=== PATIENT | female | born 1960 | race Caucasian/White ===

== ENCOUNTER 2017-10-18 20:44 | Emergency (ER) | payer BC ==
[~2017-10-18] VITALS: Ht 157.5 cm; Wt 92.5 kg
[~2017-10-18 20:44] MED LIST: ASPIRIN81 M2 PO; AZELASTINE137 MCG/0.; BENADRYL PO; BUTRANS1 EAC1 TOP; CEFTIN500 MG PO; CELEBREX100 MG PO; CYMBALTA30 MG; DICYCLOMINE HCL20 MG PO; DOXYCYCLINE HY100 MG PO; GABAPENTIN300 MG PO; GARLIC PO; HYDROCODON-ACE1 EA11 PO; KRISTALOSE20 GM PO; LACTULOSE20 GM/30 M PO; LINZESS PO; LISINOPRIL-HCT1 EAC3 PO; LITHIUM CARBON150 MG; LITHIUM CARBON150 MG PO; MACROBID 100 M100 MG PO; MOVANTIK PO; MULTIVITAMIN1 EAC2 PO; NEXIUM40 MG PO; NORCO 10MG-325MG1 EA PO; OXYBUTYNIN CHLOR5 MG PO; PYRIDIUM100 MG PO; SUCRALFATE1 GM PO; TAMSULOSIN HCL0.4 MG PO; TYLENOL EXTRA500 MG PO; Z ALPRAZOLAM PO; Z.0.FOLIC ACID1 MG PO; Z.0.NEXIUM40 MG PO; Z.0.NORVASC5 MG PO; Z.0.RESTASIS1 EACH OP; Z.0.TRICOR48 MG PO; Z.0.ZETIA10 MG PO; Z.6.FISH OIL 1,0001 PO; tylenol PO
[2017-10-18] MEDS ORDERED: HYDROCODONE/APAP 10MG-325MG TAB PO ONE (21:30)
[2017-10-18] MEDS ORDERED: KETOROLAC TROMETHAMINE 60 MG/2 ML VIAL IM ONE (21:30)
== END 2017-10-18 22:30 | disposition home or self-care (01) ==
LOC: ER 20:44
DX: Z46.6 Encounter for fitting and adjustment of urinary device (principal)
CPT/HCPCS: 99282

== ENCOUNTER 2018-05-02 20:16 | Inpatient (IN) | payer BC ==
[~2018-05-02] VITALS: Ht 157.5 cm; Wt 91.4 kg
[2018-05-02] MEDS ORDERED: DIATRIZOATE MEGL/DIATRIZOA SOD 30 ML BTL PO ONE (20:56)
[2018-05-02 20:57] LABS: BASOPHILS % 0.3 % (0.0-1.0); EOSINOPHILS # (AUTO) 0.2 (0.0-0.4); EOSINOPHILS % 2.7 % (0.0-6.0); LYMPHOCYTES # (AUTO) 2.6 (1.0-3.2); LYMPHOCYTES % 32.7 % (18.0-39.1); MEAN CORPUSCULAR HEMOGLOBIN 21.1 pg (28-32); MEAN CORPUSCULAR HGB CONC 28.3 g/dL (31-35); MEAN CORPUSCULAR VOLUME 74.6 fL (81-99); MONOCYTES # (AUTO) 0.7 (0.2-0.8); MONOCYTES % 8.9 % (4.4-11.3); NEUTROPHILS # (AUTO) 4.4 (2.1-6.9); PLATELET COUNT 500 x10e3/uL (140-360); RED BLOOD COUNT 2.84 x10e6/uL (3.6-5.1); RED CELL DISTRIBUTION WIDTH 17.4 % (11.7-14.4)
[2018-05-02 21:03] LABS: HEMATOCRIT 21.2 % (34.2-44.1)
[2018-05-02 21:18] LABS: ALANINE AMINOTRANSFERASE 11 IU/L (0-55); ALBUMIN 3.9 g/dL (3.5-5.0); ALBUMIN/GLOBULIN RATIO 1.3 (0.8-2.0); ALKALINE PHOSPHATASE 50 IU/L (40-150); AMYLASE 45 U/L (25-125); ANION GAP 13.6 mmol/L (8-16); BLOOD UREA NITROGEN 12 mg/dL (7-26); BUN/CREATININE RATIO 13 (6-25); CALCIUM 8.7 mg/dL (8.4-10.2); CARBON DIOXIDE 23 mmol/L (22-29); CHLORIDE 101 mmol/L (98-107); CREATININE, SERUM 0.93 mg/dL (0.57-1.11); EST GLOMERULAR FILTRATION RATE > 60 ML/MIN (60-); GLUCOSE 128 mg/dL (74-118); LIPASE 30 U/L (8-78); POTASSIUM 3.6 mmol/L (3.5-5.1); SODIUM 134 mmol/L (136-145)
[2018-05-02] MEDS ORDERED: SODIUM CHLORIDE 0.9% 50ML 50 ML ONE (22:30)
[2018-05-02] MEDS ORDERED: IOPAMIDOL 370 MG/ML 200 ML INFUS..BTL INJ ONE (22:31)
--- NOTE | 2018-05-02 22:45 | Diagnostic Imaging Report ---
EXAM: CT ABDOMEN AND PELVIS with IV CONTRAST DATE: 05/02/2018 8:25 PM Time stamp on Exam: 2216 hours INDICATION: Left lower quadrant pain COMPARISON: None TECHNIQUE: The abdomen and pelvis were scanned using a multidetector helical scanner. Coronal and sagittal reformations were obtained. Routine protocol performed. IV Contrast: 100 cc Isovue-370 Oral Contrast: Gastrografin CTDIvol has been reviewed. It is below the limits set by the Radiation Protocol Committee (RPC). FINDINGS: LOWER THORAX: No consolidations LIVER: Cyst measuring 5 mm in the left lobe of the liver. BILIARY: The gallbladder is unremarkable. No ductal dilation. SPLEEN: No masses PANCREAS: No masses ADRENALS: No nodules KIDNEYS: Symmetric perfusion. No enhancing masses. No hydronephrosis. GI TRACT: No distention, wall thickening or evidence of obstruction. Normal appendix. VESSELS: Moderate atherosclerotic changes of the abdominal aorta without aneurysm. PERITONEUM/RETROPERITONEUM: No free air or fluid LYMPH NODES: No lymphadenopathy REPRODUCTIVE ORGANS: Unremarkable BLADDER: Decompressed by suprapubic catheter. SOFT TISSUES: Unremarkable BONES: Surgical changes of the left hip. IMPRESSION: No acute findings in the CT of the abdomen or pelvis. No findings to explain patient's left lower quadrant pain. Signed by: Dr. Kimberli Mello M.D. on 05/02/2018 10:42 PM
[2018-05-02 23:01] LABS: CLARITY,URINE HAZY (CLEAR); COLOR,URINE YELLOW (YELLOW)
[2018-05-02 23:02] LABS: BILIRUBIN,URINE NEGATIVE (NEGATIVE); KETONES,URINE NEGATIVE (NEGATIVE); LEUKOCYTE ESTERASE ,URINE 2+ (NEGATIVE); NITRITE,URINE NEGATIVE (NEGATIVE); PROTEIN,URINE DIPSTICK NEGATIVE (NEGATIVE); URINE UROBILINOGEN 0.2 mg/dL (0.2 - 1)
[2018-05-02 23:15] LABS: BACTERIA,URINE FEW /HPF; EPITHELIAL CELLS,URINE RARE /LPF; WBC,URINE (MAN) >50 /HPF (0-5)
[2018-05-02] MEDS ORDERED: ONDANSETRON HCL INJ 2 MG/ML VIAL IV PRN (23:30)
[2018-05-02] MEDS ORDERED: SODIUM CHLORIDE 0.9% 250ML 250 ML IV ONE (23:30)
[2018-05-02] MEDS ORDERED: SODIUM CHLORIDE FLUSH 10 ML SYR INJ PRN (23:30)
[2018-05-02] MEDS ORDERED: FUROSEMIDE INJ 10 MG/ML 2 ML VIAL IV PRN (23:30)
[2018-05-02] MEDS: NICOTINE 21 MG/EA PATCH TOP SCH (23:53)
[2018-05-03 00:30] VITALS: BP 161/67
[2018-05-03] MEDS: PIPER-TAZ 3.375 GM 50 ML IV SCH ×3 (00:34→14:00)
[2018-05-03 04:00] VITALS: BP 150/54
[2018-05-03] MEDS ORDERED: SODIUM CHLORIDE 0.9% 250ML 250 ML ONE ×2 (05:28→09:52)
[2018-05-03 07:30] VITALS: BP 108/62
[2018-05-03 07:40] VITALS: BP 108/62
[2018-05-03] MEDS: NICOTINE 21 MG/EA PATCH TOP SCH (09:00)
[2018-05-03 11:51] VITALS: BP 126/69
[2018-05-03 15:30] LABS: BASOPHILS % 0.7 % (0.0-1.0); EOSINOPHILS # (AUTO) 0.2 (0.0-0.4); EOSINOPHILS % 3.1 % (0.0-6.0); HEMATOCRIT 30.1 % (34.2-44.1); HEMOGLOBIN 9.4 g/dL (12.0-16.0); LYMPHOCYTES # (AUTO) 1.3 (1.0-3.2); LYMPHOCYTES % 22.5 % (18.0-39.1); MEAN CORPUSCULAR HEMOGLOBIN 23.9 pg (28-32); MEAN CORPUSCULAR HGB CONC 31.2 g/dL (31-35); MEAN CORPUSCULAR VOLUME 76.6 fL (81-99); MONOCYTES # (AUTO) 0.5 (0.2-0.8); MONOCYTES % 8.2 % (4.4-11.3); NEUTROPHILS # (AUTO) 3.8 (2.1-6.9); PLATELET COUNT 512 x10e3/uL (140-360); RED BLOOD COUNT 3.93 x10e6/uL (3.6-5.1)
[2018-05-03 15:45] VITALS: BP 142/70
[2018-05-03] MEDS ORDERED: AUGMENTIN 875-1 EACH PO (15:46)
[2018-05-03 15:49] LABS: ALANINE AMINOTRANSFERASE 12 IU/L (0-55); ALBUMIN/GLOBULIN RATIO 1.2 (0.8-2.0); ALKALINE PHOSPHATASE 52 IU/L (40-150); ANION GAP 13.2 mmol/L (8-16); BLOOD UREA NITROGEN 10 mg/dL (7-26); BUN/CREATININE RATIO 13 (6-25); CALCIUM 9.3 mg/dL (8.4-10.2); CARBON DIOXIDE 23 mmol/L (22-29); CHLORIDE 107 mmol/L (98-107); CREATININE, SERUM 0.79 mg/dL (0.57-1.11); EST GLOMERULAR FILTRATION RATE > 60 ML/MIN (60-); GLUCOSE 121 mg/dL (74-118); POTASSIUM 4.2 mmol/L (3.5-5.1); SODIUM 139 mmol/L (136-145)
== END 2018-05-03 16:19 | disposition home or self-care (01) | DRG 699 ==
LOC: ER 20:16 → ERHOLD 23:27 → MED/SURG3 23:40
PROVIDERS: ADMIT Family Medicine; ATTEND Family Medicine
DX: T83.511A Infection and inflammatory reaction due to indwelling urethral catheter, initial encounter (principal); E87.1 Hypo-osmolality and hyponatremia; K92.2 Gastrointestinal hemorrhage, unspecified; J44.9 Chronic obstructive pulmonary disease, unspecified; I10 Essential (primary) hypertension; E78.5 Hyperlipidemia, unspecified; G89.29 Other chronic pain; Z98.1 Arthrodesis status; N30.20 Other chronic cystitis without hematuria; F17.210 Nicotine dependence, cigarettes, uncomplicated
CPT/HCPCS: 36415; 36430; 74177; 80053; 81001; 82150; 83690; 85025; 86850; 86900; 86920; 87086; 87186; 99284; J2543; J7050; P9016; Q9967

== ENCOUNTER → 2018-06-09 | Day surgery (SDC) | payer BC ==
[~2018-06-09] MED LIST changes: +AMPICILLIN PO; +AUGMENTIN 875-1 EACH PO; +CEFDINIR300 MG PO; +CEFTRIAXONE SOD 1 GM VIAL ONE; +DEXAMETHASONE SOD PHOS INJ 4 MG/ML VIAL ONE; +FENTANYL CITRATE/PF 100MCG/2 ML INJ ONE; +LACTULOSE PO; +LIDOCAINE HCL 2% LOCAL INJ 5 ML SDV VIAL INJ ONE; +MIDAZOLAM HCL 2 MG/2 ML VIAL ONE; +ONDANSETRON HCL INJ 2 MG/ML VIAL ONE; +PROPOFOL IV EMULSION 10 MG/ML 20 ML VIAL ONE; +SEVOFLURANE INHAL SOLN 250 ML PEN BTL ONE
--- NOTE | 2018-06-09 16:33 | Operative Report ---
DATE OF PROCEDURE: June 09, 2018 PREOPERATIVE DIAGNOSIS: Chronic retention and bladder pain. POSTOPERATIVE DIAGNOSIS: Chronic retention and bladder pain. PROCEDURES PERFORMED 1. Cystoscopy. 2. Bladder biopsy. 3. Removal or replacement of suprapubic tube. ANESTHESIA: General anesthesia. ESTIMATED BLOOD LOSS: Minimal. INDICATIONS AND FINDINGS: Ms. Callahan is a 58-year-old woman with a history of a neurogenic bladder of unclear etiology, who is managed with chronic suprapubic tube. Despite this, she has chronic significant pain in her bladder region and in her vagina. She now presents for potential diagnosis and management of this problem. OPERATIVE PROCEDURE IN DETAIL: The patient was brought in the operating room, placed in supine position. After initiation of general anesthesia, was placed in the dorsal lithotomy position and prepped and draped in the usual sterile fashion. Cystourethroscopy was performed using a 21-Khmer cystoscope. The anterior and posterior region were noted to be normal. The bladder was entered without difficulty. The bladder neck appeared completely opened. Upon entrance into the bladder, it was purely smooth-walled and pale in mucosa throughout. 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 The bladder capacity appeared normal. In the dome of the bladder, the balloon from the suprapubic tube was clearly visible. There was some irritation of the bladder mucosa near the tip of the SP tube. The remainder of the cystoscopy was unremarkable. The ureteral orifices were in normal anatomical position and produced clear efflux. Using cold-cup alligator forceps, biopsies were taken from the area of cystitis cystica seen on the posterior lateral wall. These were sent to pathology for microscopic analysis. The site was then fulgurated using a Bugbee electrode. A 14-Khmer coude catheter was placed through the urethra into the bladder. Once this was draining, the previous SP tube was removed and replaced with a 20-Khmer Coleman catheter. Both balloons were filled with approximately 5 mL of sterile water. The patient was returned to supine position and anesthesia was reversed. She was transferred to a bed and taken to postanesthesia care unit in good condition. Of note, the SP tube was plugged and the Coleman catheter was left draining to gravity. Job#: [id number] TA
== END | disposition home or self-care (01) ==
LOC: OR 11:21
PROVIDERS: ATTEND Urology
DX: N30.80 Other cystitis without hematuria (principal); N31.9 Neuromuscular dysfunction of bladder, unspecified; Z43.5 Encounter for attention to cystostomy; Z46.6 Encounter for fitting and adjustment of urinary device; E03.9 Hypothyroidism, unspecified; J44.9 Chronic obstructive pulmonary disease, unspecified; D64.9 Anemia, unspecified; K21.9 Gastro-esophageal reflux disease without esophagitis; F31.9 Bipolar disorder, unspecified; F41.9 Anxiety disorder, unspecified; F17.210 Nicotine dependence, cigarettes, uncomplicated; Z88.6 Allergy status to analgesic agent; Z88.1 Allergy status to other antibiotic agents; Z98.1 Arthrodesis status
CPT/HCPCS: 51705; 52214; 88305; 93005; J0696; J1100; J2001; J2250; J2405

== ENCOUNTER 2018-08-24 11:42 | Observation (INO) | payer BC ==
[~2018-08-24] VITALS: Ht 157.5 cm; Wt 86.8 kg
[2018-08-24 12:28] VITALS: BP 111/56
[2018-08-24 12:45] VITALS: BP 111/56
[2018-08-24] MEDS ORDERED: SODIUM CHLORIDE 0.9% 250ML 250 ML IV ONE (12:45)
[2018-08-24 13:57] LABS: BASOPHILS % 0.2 % (0.0-1.0); EOSINOPHILS # (AUTO) 0.2 (0.0-0.4); EOSINOPHILS % 3.4 % (0.0-6.0); LYMPHOCYTES # (AUTO) 1.3 (1.0-3.2); LYMPHOCYTES % 22.9 % (18.0-39.1); MEAN CORPUSCULAR HEMOGLOBIN 21.1 pg (28-32); MEAN CORPUSCULAR HGB CONC 27.1 g/dL (31-35); MEAN CORPUSCULAR VOLUME 77.8 fL (81-99); MONOCYTES # (AUTO) 0.5 (0.2-0.8); MONOCYTES % 8.3 % (4.4-11.3); NEUTROPHILS # (AUTO) 3.8 (2.1-6.9); NEUTROPHILS % 64.9 % (38.7-80.0); PLATELET COUNT 394 x10e3/uL (140-360); RED BLOOD COUNT 2.61 x10e6/uL (3.6-5.1); RED CELL DISTRIBUTION WIDTH 17.9 % (11.7-14.4)
[2018-08-24 14:16] LABS: HEMATOCRIT 20.3 % (34.2-44.1); HEMOGLOBIN 5.5 g/dL (12.0-16.0)
[2018-08-24 15:58] VITALS: BP 118/58
[2018-08-24] MEDS ORDERED: SODIUM CHLORIDE 0.9% 250ML 250 ML ONE ×2 (16:11→22:53)
[2018-08-24 19:30] VITALS: BP 128/60
[2018-08-24 20:19] VITALS: BP 128/60
[2018-08-24] MEDS: FUROSEMIDE INJ 10 MG/ML 2 ML VIAL IV PRN (20:59)
[2018-08-25 00:27] VITALS: BP 95/47
[2018-08-25 05:14] VITALS: BP 120/67
[2018-08-25] MEDS: FUROSEMIDE INJ 10 MG/ML 2 ML VIAL IV PRN (07:02)
[2018-08-25 07:19] LABS: HEMATOCRIT 25.5 % (34.2-44.1); HEMOGLOBIN 7.6 g/dL (12.0-16.0)
[2018-08-25 08:28] VITALS: BP 118/62
[2018-08-25 09:09] VITALS: BP 118/62
--- NOTE | 2018-10-11 00:38 | Discharge Summary ---
The patient came with symptomatic anemia. The patient has a history of blood loss anemia and has been given chronic blood transfusions as needed. The patient completed her blood transfusion. Post transfusion H and H was tested, was within normal limits. The patient was discharged home in a stable condition. FINAL DIAGNOSES 1. Blood loss anemia, status post transfusion. 2. History of . 3. History of chronic urinary retention. 4. History of bipolar disease. 5. History of anemia. 6. History of chronic urinary tract infections. For further information, look in the chart. For medicines on discharge, look in the medical reconciliation sheet. ALEXIA ARANGO MD Job#: [id number] GE
== END 2018-08-25 09:05 | disposition home or self-care (01) ==
LOC: MED/SURG 11:42
PROVIDERS: ADMIT Family Medicine; ATTEND Family Medicine
DX: D50.0 Iron deficiency anemia secondary to blood loss (chronic) (principal); K55.21 Angiodysplasia of colon with hemorrhage; Z88.1 Allergy status to other antibiotic agents; Z88.5 Allergy status to narcotic agent; Z88.2 Allergy status to sulfonamides; Z88.8 Allergy status to other drugs, medicaments and biological substances
CPT/HCPCS: 36415 ×2; 36430; 85014; 85018; 85025; 86850; 86900; 86920; G0378 ×2; J1940 ×2; J7050; P9016

== ENCOUNTER → 2018-08-24 | Emergency (ER) | payer BC ==
[~2018-08-24] MED LIST changes: -CEFTRIAXONE SOD 1 GM VIAL ONE; -DEXAMETHASONE SOD PHOS INJ 4 MG/ML VIAL ONE; -FENTANYL CITRATE/PF 100MCG/2 ML INJ ONE; -LIDOCAINE HCL 2% LOCAL INJ 5 ML SDV VIAL INJ ONE; -MIDAZOLAM HCL 2 MG/2 ML VIAL ONE; -ONDANSETRON HCL INJ 2 MG/ML VIAL ONE; -PROPOFOL IV EMULSION 10 MG/ML 20 ML VIAL ONE; -SEVOFLURANE INHAL SOLN 250 ML PEN BTL ONE
== END | disposition left against medical advice (07) ==
LOC: ER 11:15
DX: D64.9 Anemia, unspecified (principal)

== ENCOUNTER 2018-10-12 09:55 | Observation (INO) | payer BC ==
[~2018-10-12] VITALS: Ht 157.5 cm; Wt 88.5 kg
--- NOTE | 2018-10-12 18:05 | NUR ---
PT RECEIVED FROM DR ARANGO'S OFFICE VIA W/C ACCOMPANIED BY SPOUSE. A & O X3, ORIENTED TO ROOM CALL LIGHT WITHIN REACH. VITALS WNL. IV STARTED ON RT ANTECUBITAL AREA 20G 0N 1 ATTEMPT. NO S/S OF RESP DISTRESS NOTED.
[2018-10-12 19:26] LABS: BASOPHILS % 0.3 % (0.0-1.0); EOSINOPHILS # (AUTO) 0.1 (0.0-0.4); EOSINOPHILS % 1.6 % (0.0-6.0); LYMPHOCYTES % 25.5 % (18.0-39.1); MEAN CORPUSCULAR HEMOGLOBIN 22.5 pg (28-32); MEAN CORPUSCULAR HGB CONC 28.4 g/dL (31-35); MEAN CORPUSCULAR VOLUME 79.5 fL (81-99); MONOCYTES # (AUTO) 0.7 (0.2-0.8); MONOCYTES % 8.7 % (4.4-11.3); NEUTROPHILS # (AUTO) 4.9 (2.1-6.9); NEUTROPHILS % 63.4 % (38.7-80.0); PLATELET COUNT 506 x10e3/uL (140-360); RED BLOOD COUNT 2.44 x10e6/uL (3.6-5.1); RED CELL DISTRIBUTION WIDTH 17.8 % (11.7-14.4)
[2018-10-12 19:32] LABS: HEMATOCRIT 19.4 % (34.2-44.1); HEMOGLOBIN 5.5 g/dL (12.0-16.0)
[2018-10-12] MEDS ORDERED: SODIUM CHLORIDE 0.9% 250ML 250 ML IV ONE (19:45)
[2018-10-12] MEDS ORDERED: FUROSEMIDE INJ 10 MG/ML 2 ML VIAL IV PRN (19:45)
--- NOTE | 2018-10-12 19:50 | History and Physical ---
CHIEF COMPLAINT: A 58-year-old female comes in with symptomatic anemia. HISTORY OF PRESENTING ILLNESS: Ms. Callahan with a history of blood loss anemia was in her usual state of health until she did a regular H&H in the office that was found to be less than 6. The patient is admitted to the hospital for transfusion for acute blood loss anemia. PAST MEDICAL HISTORY: History of anemia, history of reflux esophagitis, history of chronic urinary tract infection, history of interstitial cystitis, history of hyperlipidemia, history of chronic constipation, and a history of anxiety and bipolar disease. Patient's medications include Tylenol Extra-Strength, alprazolam 1 mg, Omnicef 300 mg twice a day, duloxetine 30 mg daily, esomeprazole 40 mg daily, Zetia 10 mg, fenofibrate 48 mg, folic acid 1 mg, lactulose 20 mg, lithium 150 mg capsule. SURGICAL HISTORY: History of surgery of spinal fusion, neck. Also a history of hip surgery and history of suprapubic catheter. FAMILY HISTORY: History of gastrointestinal disorders in mother and brother, cancer with sister, and history of a stroke in father. REVIEW OF SYSTEMS: Negative for chest pain. Positive for fatigue. Positive for extreme tiredness. No nausea, vomiting, diarrhea. Positive for constipation. Positive for rectal bleeding that was noticed after she had a bowel prep. No hematemesis and also no history of diplopia, no blurry vision. PATIENT'S INITIAL LABORATORY VALUES: Hemoglobin was 6.2 in the clinic. H&H has not been done here today. ASSESSMENT: Blood loss anemia. PLAN: To transfuse her 2 units of PRBCs with 20 of Lasix in between. Restart her home medications. A consult with Dr. De Paz will be done outside. She needs a colonoscopy at a later date, but as soon as the blood is transfused the patient can be discharged home. FINAL DIAGNOSES 1. Blood loss anemia. 2. History of urinary tract infection. 3. History of hypertension. 4. History of constipation. 5. History of bipolar disease. All the medications will be restarted. I will continue to monitor the patient inpatient and possible discharge tomorrow after post-transfusion H&H. Job#: [id number] EV
[2018-10-12 20:00] VITALS: BP 132/59
[2018-10-12 20:21] VITALS: BP 111/54
[2018-10-13 04:00] VITALS: BP 114/53
--- NOTE | 2018-10-13 07:21 | Progress Note ---
DATE: Patient is status post transfusion and doing well. No complaints. OBJECTIVE VITAL SIGNS: 96.7, blood pressure is 114/53, pulse of 75, respirations of 20. HEENT: Normocephalic and atraumatic. Negative for pallor. CV: S1 and S2 normal. Regular rate and rhythm. ABDOMEN: Nontender and nondistended. : Suprapubic catheter in place. EXTREMITIES: No clubbing. No cyanosis. No edema. LABORATORY VALUES: Yesterday's hemoglobin was 5.5. We have not done a post transfusion H and H. Will go ahead and do that today. ASSESSMENT 1. Acute blood loss anemia: Plan is to check her post transfusion H and H. Two units of packed red blood cells have been received. 2. History of chronic urinary retention and also infections with history of suprapubic catheter. 3. Bipolar disease: Will continue on her regular medications. 4. Anxiety: Will continue with her anxiety medicines. Further recommendations per clinical course. Patient can be discharged today if hemoglobin is trending above 7. Job#: [id number] OK
--- NOTE | 2018-10-13 07:40 | NUR ---
PATIENT IS AWAKE AND IN STABLE CONDITION WITH NO S/S OF RESPIRATORY DISTRESS. NO PAIN VOICED. PATIENT HAS A SUPRAPUBIC CATHETER IN PLACE- IT IS DRAINING. CANE PRESENT NEAR PATIENT'S BEDSIDE. BED ALARM ON. CALL LIGHT IS WITHIN REACH, INSTRUCTED TO CALL FOR ASSISTANCE NEEDED.
[2018-10-13 07:48] LABS: BASOPHILS % 0.6 % (0.0-1.0); EOSINOPHILS # (AUTO) 0.2 (0.0-0.4); EOSINOPHILS % 3.1 % (0.0-6.0); HEMATOCRIT 25.6 % (34.2-44.1); LYMPHOCYTES # (AUTO) 1.9 (1.0-3.2); LYMPHOCYTES % 27.3 % (18.0-39.1); MEAN CORPUSCULAR HEMOGLOBIN 24.8 pg (28-32); MEAN CORPUSCULAR HGB CONC 31.3 g/dL (31-35); MEAN CORPUSCULAR VOLUME 79.3 fL (81-99); MONOCYTES # (AUTO) 0.6 (0.2-0.8); MONOCYTES % 9.1 % (4.4-11.3); NEUTROPHILS # (AUTO) 4.2 (2.1-6.9); NEUTROPHILS % 59.5 % (38.7-80.0); PLATELET COUNT 427 x10e3/uL (140-360); RED BLOOD COUNT 3.23 x10e6/uL (3.6-5.1); RED CELL DISTRIBUTION WIDTH 16.6 % (11.7-14.4)
[2018-10-13 07:50] VITALS: BP 132/60
[2018-10-13 08:34] LABS: ANION GAP 14.7 mmol/L (8-16); BLOOD UREA NITROGEN 12 mg/dL (7-26); BUN/CREATININE RATIO 14 (6-25); CALCIUM 8.9 mg/dL (8.4-10.2); CARBON DIOXIDE 23 mmol/L (22-29); CHLORIDE 103 mmol/L (98-107); CREATININE, SERUM 0.85 mg/dL (0.57-1.11); EST GLOMERULAR FILTRATION RATE > 60 ML/MIN (60-); GLUCOSE 102 mg/dL (74-118); POTASSIUM 3.7 mmol/L (3.5-5.1); SODIUM 137 mmol/L (136-145)
--- NOTE | 2018-10-13 11:18 | NUR ---
PATIENT DISCHARGE HOME- PATIENT OFF THE UNIT AT 1018 PER WHEELCHAIR ACCOMPANIED BY STAFF MEMBER TO THE FRONT LOBBY. PATIENT IS IN STABLE CONDITION WITH NO S/S OF RESPIRATORY DISTRESS. NO PAIN VOICED. IV REMOVED WITH TIP INTACT AT 1014. SUPRAPUBIC CATHETER IN PLACE AND DRAINING. DISCHARGE TEACHING AND INSTRUCTIONS GIVEN TO THE PATIENT. ALL PERSONAL ITEMS TAKEN WITH THE PATIENT AND HER .
== END 2018-10-13 10:15 | disposition home or self-care (01) ==
LOC: MED/SURG3 17:40
PROVIDERS: ADMIT Family Medicine; ATTEND Family Medicine
DX: D62 Acute posthemorrhagic anemia (principal); Z87.440 Personal history of urinary (tract) infections; I10 Essential (primary) hypertension; F31.9 Bipolar disorder, unspecified; K59.09 Other constipation; Z88.1 Allergy status to other antibiotic agents; Z88.5 Allergy status to narcotic agent; Z88.2 Allergy status to sulfonamides; Z88.8 Allergy status to other drugs, medicaments and biological substances; F41.9 Anxiety disorder, unspecified
CPT/HCPCS: 36415 ×2; 36430; 80048; 85025 ×2; 86850; 86900; 86920; G0378 ×2; J1940; J7050; P9016 ×2

== ENCOUNTER 2019-01-28 14:51 | Emergency (ER) | payer BC | END 2019-01-28 16:42 | disposition short-term general hospital (02) | LOC: ER 14:51 | DX: R10.9 Unspecified abdominal pain (principal) ==

== ENCOUNTER 2019-02-01 22:30 | Emergency (ER) | payer BC ==
[~2019-02-01] VITALS: Ht 157.5 cm; Wt 88.9 kg
[2019-02-01] MEDS ORDERED: ONDANSETRON HCL INJ 2MG/ML 2ML 2 MG/ML VIAL IV STA (22:41)
[2019-02-01] MEDS ORDERED: DICYCLOMINE HCL 20 MG/2 ML VIAL IM ONE ×2 (22:45)
[2019-02-01 23:08] LABS: BASOPHILS % 0.6 % (0.0-1.0); EOSINOPHILS # (AUTO) 0.1 (0.0-0.4); EOSINOPHILS % 1.8 % (0.0-6.0); HEMATOCRIT 28.8 % (34.2-44.1); HEMOGLOBIN 8.7 g/dL (12.0-16.0); LYMPHOCYTES # (AUTO) 2.4 (1.0-3.2); LYMPHOCYTES % 34.4 % (18.0-39.1); MEAN CORPUSCULAR HEMOGLOBIN 25.4 pg (28-32); MEAN CORPUSCULAR HGB CONC 30.2 g/dL (31-35); MEAN CORPUSCULAR VOLUME 84.2 fL (81-99); MONOCYTES # (AUTO) 0.6 (0.2-0.8); MONOCYTES % 9.1 % (4.4-11.3); NEUTROPHILS # (AUTO) 3.7 (2.1-6.9); NEUTROPHILS % 53.1 % (38.7-80.0); PLATELET COUNT 434 x10e3/uL (140-360); RED BLOOD COUNT 3.42 x10e6/uL (3.6-5.1); RED CELL DISTRIBUTION WIDTH 17.5 % (11.7-14.4)
[2019-02-01 23:22] LABS: ALBUMIN 3.3 g/dL (3.5-5.0); ALBUMIN/GLOBULIN RATIO 1.1 (0.8-2.0); ANION GAP 10.5 mmol/L (8-16); CALCIUM 8.7 mg/dL (8.4-10.2); CREATININE, SERUM 0.99 mg/dL (0.57-1.11); POTASSIUM 3.5 mmol/L (3.5-5.1)
== END 2019-02-02 00:44 | disposition home or self-care (01) ==
LOC: ER 22:30
DX: R10.11 Right upper quadrant pain (principal); K80.70 Calculus of gallbladder and bile duct without cholecystitis without obstruction; R11.0 Nausea; D64.9 Anemia, unspecified; E78.5 Hyperlipidemia, unspecified; F41.9 Anxiety disorder, unspecified; K21.9 Gastro-esophageal reflux disease without esophagitis
CPT/HCPCS: 36415; 80053; 82150; 83690; 85025; 99284; J0500; J2405

== ENCOUNTER → 2019-07-07 | Day surgery (SDC) | payer BC, OTHER ==
[~2019-07-07] MED LIST changes: +AMITRIPTYLINE H25 MG PO; +BENADRYL25 M1 PO; +BOTULINUM TOXIN TYPE A 100 UNIT VIAL IM ONE; +CEFTRIAXONE SOD 1 GM/NS 50 ML 50 ML IV ONE; +DEXAMETHASONE SOD PHOS INJ 4 MG/ML VIAL ONE; +FENTANYL CITRATE/PF 100MCG/2 ML INJ ONE; +LIDOCAINE HCL 2% LOCAL INJ 5 ML SDV VIAL INJ ONE; +MIDAZOLAM HCL 2 MG/2 ML VIAL ONE; +OMEPRAZOLE40 MG PO; +ONDANSETRON HCL INJ 2MG/ML 2ML 2 MG/ML VIAL ONE; +PROPOFOL IV EMULSION 10 MG/ML 20 ML VIAL ONE; +SEVOFLURANE INHAL SOLN 250 ML PEN BTL ONE; +TYLENOL WITH C1 EACH PO
[2019-07-07 13:00] VITALS: BP 110/80
--- NOTE | 2019-07-09 12:49 | Operative Report ---
DATE OF PROCEDURE: 07/07/2019 SURGEON: Hernandez Johns MD PREOPERATIVE DIAGNOSIS: Neurogenic bladder with bladder pain. POSTOPERATIVE DIAGNOSIS: Neurogenic bladder with bladder pain. OPERATIVE PROCEDURES PERFORMED: 1. Cystoscopy. 2. Bladder biopsies. 3. Intravesical instillation of Botox 100 units. ANESTHESIA: General anesthesia. ESTIMATED BLOOD LOSS: Minimal. INDICATIONS: Ms. Monse Callahan is a 59-year-old who had suprapubic tube, who complains of persistent leakage from around tube. She has failed all oral bladder agents in an attempt to stop this problem. She now presents for potential diagnosis and management of this problem. PROCEDURE IN DETAIL: The patient was brought into the operative room, placed in supine position. After administration of general anesthesia, was placed in dorsal lithotomy position, and prepped and draped in the usual sterile fashion. Cystourethroscopy was first performed through her upper [place] urethra. The anterior and posterior urethra were noted to be largely normal except for moderate erythema noted at the 6 o'clock position of the proximal ureter. The cold cup bladder biopsy forceps were used to obtain a biopsy from this location and the site was fulgurated with the electrocautery device. Another biopsy was taken from the trigone, which was also somewhat inflamed and this site was fulgurated using electrocautery device. The remainder of the bladder mucosa was unremarkable. There were no ulcers seen or any obvious lesions to explain the patient's bladder pain. The bladder was noted to fill and empty without difficulty. A similar cystoscopy was performed through the suprapubic tract. Again, no obvious abnormalities were seen in the bladder lining except for those seen at the trigone and the proximal urethra. 100 units of Botox were then injected into the detrusor muscle in and around the suprapubic tract as well as the trigone. This was done without difficulty and minimal bleeding was noted at the end of the procedure. The cystoscope was then removed and a 16-Sierra Leonean coude catheter was placed through the suprapubic tract and a 14-Sierra Leonean catheter was placed over the upper skagit urethra. The urethral catheter was plugged. The suprapubic tube was allowed to drain to gravity. The patient was returned to supine position and anesthesia was reversed. She was transferred to the Postanesthesia Care Unit in good condition. Of note, the needle and instrument count were correct at the conclusion of the case. MD ROCHELLE Barry/CLYDE /[id number]
== END | disposition home or self-care (01) ==
LOC: OR 09:56
PROVIDERS: ATTEND Urology
DX: N31.9 Neuromuscular dysfunction of bladder, unspecified (principal); Z93.50 Unspecified cystostomy status; N30.80 Other cystitis without hematuria; N30.30 Trigonitis without hematuria; M19.90 Unspecified osteoarthritis, unspecified site; H91.90 Unspecified hearing loss, unspecified ear; K58.9 Irritable bowel syndrome, unspecified; F95.9 Tic disorder, unspecified; E78.5 Hyperlipidemia, unspecified; F31.9 Bipolar disorder, unspecified; F17.210 Nicotine dependence, cigarettes, uncomplicated; Z88.6 Allergy status to analgesic agent; Z88.1 Allergy status to other antibiotic agents
CPT/HCPCS: 52204; 52287; 88305; 88313; 93005; J0587; J0696; J1100; J2001; J2250; J2405; J2704; J3010

== ENCOUNTER 2019-10-08 16:33 | Observation (INO) | payer BC, OTHER ==
[~2019-10-08] VITALS: Ht 157.5 cm; Wt 75.0 kg
[~2019-10-08 16:33] MED LIST changes: -BOTULINUM TOXIN TYPE A 100 UNIT VIAL IM ONE; -CEFTRIAXONE SOD 1 GM/NS 50 ML 50 ML IV ONE; -DEXAMETHASONE SOD PHOS INJ 4 MG/ML VIAL ONE; -FENTANYL CITRATE/PF 100MCG/2 ML INJ ONE; -LIDOCAINE HCL 2% LOCAL INJ 5 ML SDV VIAL INJ ONE; -MIDAZOLAM HCL 2 MG/2 ML VIAL ONE; -ONDANSETRON HCL INJ 2MG/ML 2ML 2 MG/ML VIAL ONE; -PROPOFOL IV EMULSION 10 MG/ML 20 ML VIAL ONE; -SEVOFLURANE INHAL SOLN 250 ML PEN BTL ONE
[2019-10-08 18:16] LABS: BASOPHILS % 0.3 % (0.0-1.0); EOSINOPHILS # (AUTO) 0.1 (0.0-0.4); EOSINOPHILS % 1.7 % (0.0-6.0); HEMATOCRIT 23.7 % (34.2-44.1); HEMOGLOBIN 7.1 g/dL (12.0-16.0); LYMPHOCYTES # (AUTO) 1.6 (1.0-3.2); LYMPHOCYTES % 25.3 % (18.0-39.1); MEAN CORPUSCULAR HEMOGLOBIN 23.7 pg (28-32); MEAN CORPUSCULAR VOLUME 79.3 fL (81-99); MONOCYTES # (AUTO) 0.4 (0.2-0.8); MONOCYTES % 6.8 % (4.4-11.3); NEUTROPHILS # (AUTO) 4.2 (2.1-6.9); NEUTROPHILS % 65.4 % (38.7-80.0); PLATELET COUNT 325 x10e3/uL (140-360); RED BLOOD COUNT 2.99 x10e6/uL (3.6-5.1); RED CELL DISTRIBUTION WIDTH 15.3 % (11.7-14.4)
[2019-10-08 19:01] LABS: ALBUMIN 3.4 g/dL (3.5-5.0); ALBUMIN/GLOBULIN RATIO 1.1 (0.8-2.0); ANION GAP 15.4 mmol/L (8-16); CALCIUM 9.1 mg/dL (8.4-10.2); CREATININE, SERUM 1.33 mg/dL (0.57-1.11); POTASSIUM 4.4 mmol/L (3.5-5.1)
[2019-10-08 19:10] LABS: CREATINE KINASE MB 1.1 ng/mL (0-5.0)
[2019-10-08] MEDS ORDERED: SODIUM CHLORIDE 0.9% 250ML 250 ML IV ONE (19:30)
[2019-10-08 21:15] VITALS: BP 131/60
[2019-10-08 21:33] VITALS: BP 131/60
--- NOTE | 2019-10-08 22:20 | NUR ---
Called lab checking on availability of PRBC.. Lab states blood is not ready.
[2019-10-08] MEDS ORDERED: SODIUM CHLORIDE 0.9% 250ML 500 ML ONE (23:18)
[2019-10-09] VITALS: BP 109/56
--- NOTE | 2019-10-09 07:00 | NUR ---
BEDSIDE SHIFT REPORT RECEIVED FROM PROTEIN PURIFICATION SCIENTIST RN. PT DENIES NEEDS AT THIS TIME.
[2019-10-09 07:40] VITALS: BP 140/68
[2019-10-09 09:00] VITALS: BP 140/68
[2019-10-09 09:31] LABS: BASOPHILS % 0.3 % (0.0-1.0); EOSINOPHILS # (AUTO) 0.2 (0.0-0.4); HEMATOCRIT 32.7 % (34.2-44.1); LYMPHOCYTES # (AUTO) 1.6 (1.0-3.2); LYMPHOCYTES % 18.9 % (18.0-39.1); MEAN CORPUSCULAR HGB CONC 30.6 g/dL (31-35); MEAN CORPUSCULAR VOLUME 81.8 fL (81-99); MONOCYTES # (AUTO) 0.6 (0.2-0.8); MONOCYTES % 7.1 % (4.4-11.3); NEUTROPHILS # (AUTO) 6.2 (2.1-6.9); NEUTROPHILS % 71.5 % (38.7-80.0); PLATELET COUNT 279 x10e3/uL (140-360); RED CELL DISTRIBUTION WIDTH 15.7 % (11.7-14.4)
--- NOTE | 2019-10-09 12:25 | History and Physical ---
HISTORY OF PRESENT ILLNESS: A 59-year-old female, who came in with symptomatic anemia. The patient was noted to have a hemoglobin of 6.8. The patient recently underwent a stoma for her urinary bladder. The patient was doing well, did complain of increased weakness and fatigue and feeling dehydrated. The patient came in, was found to have symptomatic anemia, admitted for the same. The patient is getting the second unit transfusion at this time. PAST MEDICAL HISTORY: History of gastroparesis, history of hypertension, history of hyponatremia, history of chronic low back pain and neck pain, history of glaucoma and history of hearing problems, and also history of anxiety. MEDICATIONS: She takes at home are acetaminophen, alprazolam as needed, dicyclomine, diphenhydramine as needed, Zetia 10 mg daily, fenofibrate, Tricor 48 mg daily, folic acid, lactulose, and omeprazole. The patient also takes Linzess as needed. SOCIAL HISTORY: No EtOH, no IV drug abuse. History of smoking in the past. Currently nonsmoker. PAST SURGICAL HISTORY: As mentioned above, recent history of stoma for the urinary bladder and takedown of the suprapubic catheter. REVIEW OF SYSTEMS: Negative for chest pain. Positive for shortness of breath. Positive for nausea. Positive for constipation. Positive for fatigue and history of questionable dizziness also. No diplopia. No blurry vision. The patient has also bloating and abdominal pain from time to time. PHYSICAL EXAMINATION: VITAL SIGNS: Temperature is 97.0, pulse of 70, respirations of 18, blood pressure is 109/56, and pulse oximetry of 97%. HEENT: Normocephalic and atraumatic. CVS: S1 and S2 normal. Regular rate and rhythm. ABDOMEN: Positive for stoma scar and slowly healing tissue with no dehiscence of the suprapubic area. EXTREMITIES: No clubbing. No cyanosis. No edema. HEENT: Positive for pallor. LABORATORY VALUES: White count 6.48, hemoglobin 7.1, and hematocrit of 23.7. Chemistry shows sodium of 137, potassium of 4.4, BUN of 13, and creatinine of 1.33. The patient has 2 units of PRBCs at this time. ASSESSMENT: 1. Symptomatic anemia with hypertensive episodes. 2. Acute renal injury. 3. Hypertension. 4. Hyperlipidemia. 5. Anxiety. 6. Irritable bowel syndrome. 7. Gastroparesis. PLAN: We will continue to monitor her blood pressures. The patient is getting a second unit of PRBC. Can be discharged today after the second unit of PRBC and post transfusion H and H. For further information, look in the chart. The patient can be discharged today. MD KATIE Henry/MODL /[id number]
== END 2019-10-09 10:40 | disposition home or self-care (01) ==
LOC: ER 16:33 → ERHOLD 19:07 → MED/SURG 21:00
PROVIDERS: ADMIT Family Medicine; ATTEND Family Medicine
DX: D64.9 Anemia, unspecified (principal); E86.0 Dehydration; I10 Essential (primary) hypertension; M54.5 Low back pain; E87.1 Hypo-osmolality and hyponatremia; H40.9 Unspecified glaucoma; F41.9 Anxiety disorder, unspecified; N17.9 Acute kidney failure, unspecified; E78.5 Hyperlipidemia, unspecified; K58.9 Irritable bowel syndrome, unspecified; K31.84 Gastroparesis
CPT/HCPCS: 36415 ×2; 80053; 82550; 82553; 84484; 85025 ×2; 86850; 86900; 86920; 93005; 99284; G0378 ×2; J7050; P9016

== ENCOUNTER → 2020-02-16 | Day surgery (SDC) | payer OTHER ==
[~2020-02-16] MED LIST changes: +CEFTRIAXONE SOD 1 GM/NS 50 ML 50 ML IV ONE; +FENTANYL CITRATE/PF 100MCG/2 ML INJ ONE; +IOPAMIDOL 300MG/ML 50ML INFUS..BTL IV ONE; +LIDOCAINE HCL 2% LOCAL INJ 5 ML SDV VIAL INJ ONE; +MIDAZOLAM HCL 2 MG/2 ML VIAL ONE; +ONDANSETRON HCL INJ 2MG/ML 2ML 2 MG/ML VIAL ONE; +PROPOFOL IV EMULSION 10 MG/ML 20 ML VIAL ONE
[2020-02-16 09:45] VITALS: BP 150/81
--- NOTE | 2020-03-15 09:32 | Operative Report ---
DATE OF PROCEDURE: 02/16/2020 SURGEON: Hernandez Johns MD PREOPERATIVE DIAGNOSIS: Possible stomal stenosis. POSTOPERATIVE DIAGNOSIS: Possible stomal stenosis. OPERATIVE PROCEDURE PERFORMED: Stomal cystoscopy. ANESTHESIA: General anesthesia. ESTIMATED BLOOD LOSS: Minimal. INDICATIONS: Ms. Monse Callahan is a 59-year-old woman, who had a simple cystectomy and ileal loop urinary diversion for chronic cystitis. She initially did well, but now continues to have intermittent stenosis of her stoma. She has no evidence of recent infection. There was no hydronephrosis seen on recent examination by CAT scan, but she has continued episodes of poor drainage from her stoma associated with pain. PROCEDURE IN DETAIL: The patient was brought into the operating room, placed in supine position. After initiation of general anesthesia, she was prepped and draped in the usual fashion. Cystoscopy was performed both with a flexible and with a rigid cystoscope. The distal 2 cm of her stoma was entered without difficulty and the mucosa in this area noted to be normal. No obvious movement could be seen more proximal to this. Multiple attempts were tried with both rigid and flexible scope and with several wires, but this was all unsuccessful and no communication to the proximal stoma could be proven by radiologic imaging. The patient, however, was noted to make a small amount of urine during this procedure via the stoma. The case was then aborted and the patient was awakened and taken to the postanesthesia care unit in good condition. The instrument count was correct at the conclusion of the case. Hernandez Johns MD HLW/MODL /[id number]
== END | disposition home or self-care (01) ==
LOC: OR 06:26
PROVIDERS: ATTEND Urology
DX: N30.21 Other chronic cystitis with hematuria (principal); Z90.6 Acquired absence of other parts of urinary tract; I95.9 Hypotension, unspecified; K28.9 Gastrojejunal ulcer, unspecified as acute or chronic, without hemorrhage or perforation; K21.9 Gastro-esophageal reflux disease without esophagitis; K44.9 Diaphragmatic hernia without obstruction or gangrene; M54.9 Dorsalgia, unspecified; F41.9 Anxiety disorder, unspecified; F31.9 Bipolar disorder, unspecified; H91.90 Unspecified hearing loss, unspecified ear; Z88.8 Allergy status to other drugs, medicaments and biological substances; Z88.1 Allergy status to other antibiotic agents; Z91.040 Latex allergy status; Z88.6 Allergy status to analgesic agent; Z68.36 Body mass index [BMI] 36.0-36.9, adult
CPT/HCPCS: 50951; 87086; 87186; 93005; J0696; J2001; J2250; J2405; J2704; J3010

== ENCOUNTER 2020-05-21 21:26 | Emergency (ER) | payer OTHER ==
[~2020-05-21] VITALS: Ht 157.5 cm; Wt 74.8 kg
[~2020-05-21 21:26] MED LIST changes: -CEFTRIAXONE SOD 1 GM/NS 50 ML 50 ML IV ONE; -FENTANYL CITRATE/PF 100MCG/2 ML INJ ONE; -IOPAMIDOL 300MG/ML 50ML INFUS..BTL IV ONE; -LIDOCAINE HCL 2% LOCAL INJ 5 ML SDV VIAL INJ ONE; -MIDAZOLAM HCL 2 MG/2 ML VIAL ONE; -ONDANSETRON HCL INJ 2MG/ML 2ML 2 MG/ML VIAL ONE; -PROPOFOL IV EMULSION 10 MG/ML 20 ML VIAL ONE
--- NOTE | 2020-05-21 22:26 | Emergency Department Note ---
History of Present Illnes History of Present Illness Chief Complaint: Genitourinary History of Present Illness This is a 60 year old female PRESENTS TO THE ER C/O URINE NOT DRAINING FROM UROSTOMY SITE ONSET TODAY; PT HAD UROSTOMY PLACED AT [facility] ON 04/12/[address] DU AND DR. CABRERA; PT IS SCHEDULED WITH DR. DU LATER THIS WEEK; PT STATES WHEN SHE WAS SITTING IN THE LOBBY, URINE BEGAN DRAINING TO COLLECTION BAG; URINE YELLOW AND CLEAR; NAD NOTED AT THIS TIME; NO SIGNS OF INFECTION NOTED; V/S/S; . Historian: Patient Arrival Mode: Car Onset (how long ago): hour(s) (3) Location: urostomy Quality: not draining Radiation: Reports non-radiation Severity: mild Onset quality: sudden Duration (how long): hour(s) (3) Timing of current episode: unable to specify Progression: resolved Chronicity: recurrent Context: Reports recent surgery (urostomy place in march 2020); Denies recent illness Relieving factors: none Exacerbating factors: none Associated symptoms: Reports denies other symptoms Past Medical/Family History Physician Review I have reviewed the patient's past medical and family history. Any updates have been documented here. Past Medical History Recent Fever: No Clinical Suspicion of Infectio: No New/Unexplained Change in Ment: No Past Medical History: Hypertension, UTI's, Anemia, Anxiety, Depression, Other Mental Illness, GERD Other Medical History: GASTRIC ULCERS SMOKER BIPOLAR INTERSTITUAL CYSTITIS GASTROPERISIS IBS DIVERTICULITIS HX OF BLOOD TRANSFUSIONS Past Surgical History: Hip Replacement, Back Surgery Other Surgery: FELIPA TUNNEL L HAND UROSTOMY Social History Smoking Cessation: Never Smoker Alcohol Use: None Any Illegal Drug Use: No Physically hurt or threatened: No Family History Family history of heart diseas: No Other family history htn Other Last Tetanus: UNKNOWN Review of Systems Review of Systems Constitutional: Reports no symptoms EENTM: Reports no symptoms Cardiovascular: Reports no symptoms Respiratory: Reports no symptoms Gastrointestinal: Reports no symptoms Genitourinary: Reports as per HPI Musculoskeletal: Reports no symptoms Integumentary: Reports no symptoms Neurological: Reports no symptoms Psychological: Reports no symptoms Endocrine: Reports no symptoms Hematological/Lymphatic: Reports no symptoms Physical Exam Related Data Allergies: Coded Allergies: gabapentin (Verified Allergy, Severe, Confusion, hallucinations, SOB, 06/08/18) morphine (Verified Allergy, Intermediate, HALLUCINATIONS, 10/08/19) levofloxacin (Verified Allergy, Unknown, 05/02/18) Triage Vital Signs Vital Signs Date Time Temp Pulse Resp B/P (MAP) Pulse Ox O2 Delivery O2 Flow Rate FiO2 05/21/20 22:10 97.9 81 18 134/62 100 Room Air Vital signs reviewed: Yes Physical Exam CONSTITUTIONAL Constitutional: Present well-developed, Present well-nourished HENT HENT: Present normocephalic, Present atraumatic, Present oropharynx clear/moist, Present nose normal HENT L/R: Present left ext ear normal, Present right ext ear normal EYES Eyes: Reports PERRL, Reports conjunctivae normal NECK Neck: Present ROM normal PULMONARY Pulmonary: Present effort normal, Present breath sounds normal CARDIOVASCULAR Cardiovascular: Present regular rhythm, Present heart sounds normal, Present capillary refill normal, Present normal rate GASTROINTESTINAL Abdominal: Present soft, Present nontender, Present bowel sounds normal, Present other (urostomy present, urine draining in to bag, urine is clear yellow) GENITOURINARY Genitourinary: Present exam deferred SKIN Skin: Present warm, Present dry MUSCULOSKELETAL Musculoskeletal: Present ROM normal NEUROLOGICAL Neurological: Present alert, Present oriented x 3, Present no gross motor or sensory deficits PSYCHOLOGICAL Psychological: Present mood/affect normal, Present judgement normal Assessment & Plan Medical Decision Making [facility] d/c pt to follow up with her urologist as schedule Assessment & Plan Final Impression: (1) Presence of urostomy Depart Disposition: HOME, SELF-CARE Last Vital Signs Date Time Temp Pulse Resp B/P (MAP) Pulse Ox O2 Delivery O2 Flow Rate FiO2 05/21/20 22:10 97.9 81 18 134/62 100 Room Air Home Meds Reported Medications Dicyclomine Hcl (DICYCLOMINE HCL) 20 Mg Tablet, 20 MG PO DAILY, TAB 09/12/19 Diphenhydramine Hcl (BENADRYL) 25 Mg Capsule, 50 MG PO TID 06/23/19 Acetaminophen With Codeine (TYLENOL WITH CODEINE #3 TABLET) 1 Each Tablet, 300 MG PO PRN, TAB 06/23/19 Amitriptyline Hcl (AMITRIPTYLINE HCL) 25 Mg Tablet, 50 MG PO HS, #30 TAB 06/23/19 Omeprazole (OMEPRAZOLE) 40 Mg Capsule.dr, 1 TAB PO BID 06/23/19 Acetaminophen (TYLENOL EXTRA STRENGTH) 500 Mg Tablet, 3 TAB PO PRN 09/08/17 [Linzess] No Conflict Check, 290 MG PO DAILY PRN for CONSTIPATION 04/08/17 Lactulose (KRISTALOSE) 20 Gm Packet, 15 ML PO DAILY PRN for BOWEL MOVEMENT 08/28/15 [place] Carbonate (LITHIUM CARBONATE) 150 Mg Capsule, 150 MG PO DAILY 08/02/14 Folic Acid (Folic Acid) 1 Mg Tablet, 1 MG PO QD 07/09/11 Alprazolam (Alprazolam Er) 1 Mg Tab.sr.24h, 1 MG PO TID 07/09/11 Ezetimibe (Zetia) 10 Mg Tablet, 10 MG PO QD 07/09/11 Fenofibrate Nanocrystallized (Tricor) 48 Mg Tablet, 52 MG PO QD 07/09/11 ERNIE AUSTIN MD May 21, 2020 22:26
== END 2020-05-21 22:20 | disposition home or self-care (01) ==
LOC: ER 21:50
DX: Z43.6 Encounter for attention to other artificial openings of urinary tract (principal); I10 Essential (primary) hypertension; K21.9 Gastro-esophageal reflux disease without esophagitis; D64.9 Anemia, unspecified; F41.9 Anxiety disorder, unspecified; F31.9 Bipolar disorder, unspecified; F17.210 Nicotine dependence, cigarettes, uncomplicated
CPT/HCPCS: 99282

== ENCOUNTER → 2020-07-05 | Outpatient (CLI) | payer OTHER ==
[~2020-07-05] MED LIST changes: +IOPAMIDOL 300MG/ML 100 ML INFUS..BTL IV ONE
--- NOTE | 2020-07-06 13:51 | Diagnostic Imaging Report ---
Fluoroscopically guided loopogram Indication: Stomal Stricture Comparison: CT abdomen/pelvis 05/02/2018 V Belt Curer: Joseph Blanc MD Fluoroscopy Time: 2.4 minutes Cumulative Dose: 33.8 mGy TECHNIQUE: Resource Director image was obtained. A balloon tipped HSG style catheter was advanced through the left lower quadrant ostomy and the retention balloon inflated. Isovue 370 contrast material was then injected through the catheter and multiple images obtained in several obliques. FINDINGS: Contrast opacification of the ileal conduit as well as of both the right and left distal ureters. There is subsequent reflux of contrast up the entirety of the right ureter with opacification of the right collecting system, which shows minimal hydronephrosis. No opacification of the left renal collecting system. No definite stricture identified. No extravasation of contrast material to suggest anastomotic leak. IMPRESSION: No definite leak or stricture. Reflux of contrast to the right renal collecting system shows mild hydronephrosis. Signed by: Joseph Blanc MD on 07/06/2020 1:48 PM
== END ==
LOC: DX 10:45
PROVIDERS: ATTEND Urology
DX: N99.524 Stenosis of incontinent stoma of urinary tract (principal)
CPT/HCPCS: 74425; Q9967

== ENCOUNTER 2020-09-18 18:26 | Emergency (ER) | payer OTHER ==
[~2020-09-18] VITALS: Ht 157.5 cm; Wt 74.8 kg
[~2020-09-18 18:26] MED LIST changes: -IOPAMIDOL 300MG/ML 100 ML INFUS..BTL IV ONE
--- NOTE | 2020-09-18 19:20 | Emergency Department Note ---
History of Present Illnes History of Present Illness Chief Complaint: General Medicine Complaints History of Present Illness This is a 60 year old female from home with complaints of constipation over the last week and states that the constipation has gotten severe enough that her urostomy has not been functioning well over the last two days. Patient reports that she had surgery to repair a hernia at [place] on 08/12/20 and was told to take one bottle of Suprep once a week to maintain regularity. Patient reports a history of IBS and has tried many different stool softeners and laxatives over the years and nothing seems to work. Patient states her last good bowel movement was a week ago. Patient reports that her has even tried to digitally disimpact her but was unable to feel stool with his finger. Patient is in no acute distress. Ambulatory without assistance. . Historian: Patient Arrival Mode: Car Onset (how long ago): week(s) (1) Location: abd Quality: unable to have bm Radiation: Reports non-radiation Severity: mild Onset quality: gradual Duration (how long): week(s) (1) Timing of current episode: constant Progression: worsening Context: Reports recent surgery (hernia repair on 08/12/20); Denies recent illness Relieving factors: none Exacerbating factors: none Associated symptoms: Reports denies other symptoms Past Medical/Family History Physician Review I have reviewed the patient's past medical and family history. Any updates have been documented here. Past Medical History Recent Fever: No Clinical Suspicion of Infectio: No New/Unexplained Change in Ment: No Past Medical History: Hypertension, UTI's, Anemia, Anxiety, Depression, Other Mental Illness, GERD Other Medical History: GASTRIC ULCERS SMOKER BIPOLAR INTERSTITUAL CYSTITIS GASTROPERISIS IBS DIVERTICULITIS HX OF BLOOD TRANSFUSIONS Past Surgical History: Hip Replacement, Hernia Repair, Back Surgery Other Surgery: FELIPA TUNNEL L HAND UROSTOMY Social History Smoking Cessation: Current every day smoker Counseling Performed: Yes Alcohol Use: None Any Illegal Drug Use: No Physically hurt or threatened: No Family History Family history of heart diseas: No Other family history htn Other Last Tetanus: UNKNOWN Any Pre-Existing Lines (PICC,: No Review of Systems Review of Systems Constitutional: Reports no symptoms EENTM: Reports no symptoms Cardiovascular: Reports no symptoms Respiratory: Reports no symptoms Gastrointestinal: Reports as per HPI Genitourinary: Reports no symptoms Musculoskeletal: Reports no symptoms Integumentary: Reports no symptoms Neurological: Reports no symptoms Psychological: Reports no symptoms Endocrine: Reports no symptoms Hematological/Lymphatic: Reports no symptoms Physical Exam Related Data Allergies: Coded Allergies: gabapentin (Verified Allergy, Severe, Confusion, hallucinations, SOB, 06/08/18) morphine (Verified Allergy, Intermediate, HALLUCINATIONS, 10/08/19) levofloxacin (Verified Allergy, Unknown, 05/02/18) Triage Vital Signs Vital Signs Date Time Temp Pulse Resp B/P (MAP) Pulse Ox O2 Delivery O2 Flow Rate FiO2 09/18/20 18:39 99.1 79 16 164/74 100 Room Air Vital signs reviewed: Yes Physical Exam CONSTITUTIONAL Constitutional: Present well-developed, Present well-nourished; Absent distressed HENT HENT: Present normocephalic, Present atraumatic, Present oropharynx elbert ar/moist, Present nose normal HENT L/R: Present left ext ear normal, Present right ext ear normal EYES Eyes: Reports PERRL, Reports conjunctivae normal NECK Neck: Present ROM normal PULMONARY Pulmonary: Present effort normal, Present breath sounds normal CARDIOVASCULAR Cardiovascular: Present regular rhythm, Present heart sounds normal, Present capillary refill normal, Present normal rate GASTROINTESTINAL Abdominal: Present soft, Present nontender, Present bowel sounds normal, Present other (urostomy present with bag full of clear slade colored urine) GENITOURINARY Genitourinary: Present exam deferred SKIN Skin: Present warm, Present dry MUSCULOSKELETAL Musculoskeletal: Present ROM normal NEUROLOGICAL Neurological: Present alert, Present oriented x 3, Present no gross motor or sensory deficits PSYCHOLOGICAL Psychological: Present mood/affect normal, Present judgement normal Results Imaging Imaging results reviewed: Yes Impressions Procedure: [id number] DX/ABDOMEN-1VIEW (KUB) Exam Date: 09/18/20 Exam Time: 1929 REPORT STATUS: Signed EXAM: Abdomen Radiograph INDICATION: constipation COMPARISON: None FINDINGS: TUBES and LINES: None. LOWER CHEST: No abnormalities in the lower chest. ABDOMEN: The bowel loops are unremarkable with no dilatation or signs of obstruction. No pneumoperitoneum. No abnormal abdominal calcifications. BONES AND SOFT TISSUES: Left femur fixation hardware present. No acute osseous lesion. Soft tissues are unremarkable. IMPRESSION: No acute abdominal radiographic abnormality. Signed by: Deni Jauregui MD on 09/18/2020 7:58 PM Dictated By: DENI JAUREGUI MD 56 Transcribed By: ANGY on 09/18/201957 COPY TO: ERNIE AUSTIN MD~ Assessment & Plan Medical Decision Making MDM pt with c/o constipation kub ordered to eval for impaction Assessment & Plan Final Impression: (1) Constipation Depart Disposition: HOME, SELF-CARE Last Vital Signs Date Time Temp Pulse Resp B/P (MAP) Pulse Ox O2 Delivery O2 Flow Rate FiO2 09/18/20 19:16 77 19 154/62 100 Room Air 09/18/20 18:39 99.1 Home Meds Reported Medications Dicyclomine Hcl (DICYCLOMINE HCL) 20 Mg Tablet, 20 MG PO DAILY, TAB 09/12/19 Diphenhydramine Hcl (BENADRYL) 25 Mg Capsule, 50 MG PO TID 06/23/19 Acetaminophen With Codeine (TYLENOL WITH CODEINE #3 TABLET) 1 Each Tablet, 300 MG PO PRN, TAB 06/23/19 Amitriptyline Hcl (AMITRIPTYLINE HCL) 25 Mg Tablet, 50 MG PO HS, #30 TAB 06/23/19 Omeprazole (OMEPRAZOLE) 40 Mg Capsule.dr, 1 TAB PO BID 06/23/19 Acetaminophen (TYLENOL EXTRA STRENGTH) 500 Mg Tablet, 3 TAB PO PRN 09/08/17 [Linzess] No Conflict Check, 290 MG PO DAILY PRN for CONSTIPATION 04/08/17 Lactulose (KRISTALOSE) 20 Gm Packet, 15 ML PO DAILY PRN for BOWEL MOVEMENT 08/28/15 [place] Carbonate (LITHIUM CARBONATE) 150 Mg Capsule, 150 MG PO DAILY 08/02/14 Folic Acid (Folic Acid) 1 Mg Tablet, 1 MG PO QD 07/09/11 Alprazolam (Alprazolam Er) 1 Mg Tab.sr.24h, 1 MG PO TID 07/09/11 Ezetimibe (Zetia) 10 Mg Tablet, 10 MG PO QD 07/09/11 Fenofibrate Nanocrystallized (Tricor) 48 Mg Tablet, 52 MG PO QD 07/09/11 ERNIE AUSTIN MD Sep 18, 2020 19:20
--- NOTE | 2020-09-18 20:00 | NUR ---
PT CHECKED DIGITALLY FOR CONSTIPATION PER MD ORDERS. NO CONSTIPATION NOTED. MD INFORMED.
--- NOTE | 2020-09-18 20:01 | Diagnostic Imaging Report ---
EXAM: Abdomen Radiograph INDICATION: constipation COMPARISON: None FINDINGS: TUBES and LINES: None. LOWER CHEST: No abnormalities in the lower chest. ABDOMEN: The bowel loops are unremarkable with no dilatation or signs of obstruction. No pneumoperitoneum. No abnormal abdominal calcifications. BONES AND SOFT TISSUES: Left femur fixation hardware present. No acute osseous lesion. Soft tissues are unremarkable. IMPRESSION: No acute abdominal radiographic abnormality. Signed by: Deni Bermudez MD on 09/18/2020 7:58 PM
[2020-09-18 20:33] VITALS: BP 134/63
== END 2020-09-18 20:42 | disposition home or self-care (01) ==
LOC: ER 18:57
DX: K59.00 Constipation, unspecified (principal); I10 Essential (primary) hypertension; D64.9 Anemia, unspecified; F41.9 Anxiety disorder, unspecified; K21.9 Gastro-esophageal reflux disease without esophagitis; F31.9 Bipolar disorder, unspecified; Z87.19 Personal history of other diseases of the digestive system; F17.210 Nicotine dependence, cigarettes, uncomplicated
CPT/HCPCS: 74018; 99283

== ENCOUNTER 2020-11-15 23:02 | Emergency (ER) | payer OTHER ==
[~2020-11-15] VITALS: Ht 157.5 cm; Wt 74.8 kg
[2020-11-15] MEDS ORDERED: GOLYTELY SOLU4000 ML PO (23:36)
== END 2020-11-16 00:07 | disposition home or self-care (01) ==
LOC: ER 23:31
DX: K59.00 Constipation, unspecified (principal); I10 Essential (primary) hypertension; D64.9 Anemia, unspecified; K21.9 Gastro-esophageal reflux disease without esophagitis; F41.9 Anxiety disorder, unspecified; F31.9 Bipolar disorder, unspecified; Z87.19 Personal history of other diseases of the digestive system
CPT/HCPCS: 99282

== ENCOUNTER → 2020-12-21 | Outpatient (CLI) | payer OTHER ==
[~2020-12-21] MED LIST changes: +GOLYTELY SOLU4000 ML PO; +IOPAMIDOL 300MG/ML 100 ML INFUS..BTL IV ONE
== END ==
LOC: DX 13:40
PROVIDERS: ATTEND Urology
DX: N99.523 Herniation of incontinent stoma of urinary tract (principal)
CPT/HCPCS: 50396; 74425; Q9967